=== PATIENT | male | born 1985 | race African-American/Black ===

== ENCOUNTER 2018-10-31 10:45 | Inpatient (IN) | payer OTHER ==
[2018-10-31 12:56] VITALS: BMI 22.9
--- NOTE | 2018-10-31 14:07 | HP ---
CIWA Score - Admission Criteria OASAS Guidelines: Admission for Medically Managed Detox: Requires at least one of the followin. CIWA greater than 12 2. Seizures within the past 24 hours 3. Delirium tremens within the past 24 hours 4. Hallucinations within the past 24 hours 5. Acute intervention needed for co occurring medical disorder 6. Acute intervention needed for co occurring psychiatric disorder 7. Severe withdrawal that cannot be handled at a lower level of care (continued vomiting, continued diarrhea, abnormal vital signs) requiring intravenous medication and/or fluids 8. Admission ROS [facility] - HPI Chief Complaint: i am here for rehab from alcohol,marijuana Allergies/Adverse Reactions: Allergies Allergy/AdvReac Type Severity Reaction Status Date / Time No Known Allergies Allergy Verified 10/31/18 12:43 History of Present Illness: this 33 years old male with alcohol and marijuana dependence,seeking rehab, attending out patient program, need help in rehab blindness of right eye since 2008 nicotine dependence 1 pack/day,did not want nicotine replacement bipolar disorder with mood disorder Exam Limitations: No Limitations - Ebola screening Have you traveled outside of the country in the last 21 days: No (N) Have you had contact with anyone from an Ebola affected area: No Do you have a fever: No - Review of Systems Constitutional: No Symptoms Reported EENT: reports: No Symptoms Reported, Other (blindness of right eye since 2008) Respiratory: reports: No Symptoms reported Cardiac: reports: No Symptoms Reported GI: reports: No Symptoms Reported : reports: No Symptoms Reported Integumentary: reports: No Symptoms Reported Neuro: reports: No Symptoms reported Endocrine: reports: No Symptoms Reported Hematology: reports: No Symptoms Reported Psychiatric: reports: No Sypmtoms Reported, Judgement Intact, Mood/Affect Appropiate, Orientated x3 (biplar disorder) Other Systems: Reviewed and Negative Patient History - Patient Medical History Hx Anemia: No Hx Asthma: No Hx Chronic Obstructive Pulmonary Disease (COPD): No Hx Cancer: No Hx Cardiac Disorders: No Hx Congestive Heart Failure: No Hx Hypertension: No Hx Hypercholesterolemia: No Hx Pacemaker: No HX Cerebrovascular Accident: No Hx Seizures: No Hx Dementia: No Hx Diabetes: No Hx Gastrointestinal Disorders: No Hx Liver Disease: No Hx Genitourinary Disorders: No Hx Sexually Transmitted Disorders: Yes (treated for syphilis) Hx Renal Disease (ESRD): No Hx Thyroid Disease: No Hx Human Immunodeficiency Virus (HIV): No (10/07 negative) Hx Hepatitis C: No Hx Depression: No Hx Suicide Attempt: No Hx Bipolar Disorder: Yes (no meds) Hx Schizophrenia: No Other Medical History: no suicidal,no homicidal - Patient Surgical History Past Surgical History: No - PPD History Previous Implant?: Yes Documented Results: Negative w/o proof Implanted On Prior [facility] Admission?: No PPD to be Administered?: Yes - Smoking Cessation Smoking history: Current every day smoker Have you smoked in the past 12 months: Yes Aproximately how many cigarettes per day: 20 Cigars Per Day: 0 Hx Chewing Tobacco Use: No Initiated information on smoking cessation: Yes 'Breaking Loose' booklet given: 10/31/18 - Substances abused Alcohol Substance route: Oral Frequency: 1-2 times per week Amount used: 1 bottle of champaign Age of first use: 14 Date of last use: 10/23/18 Marijuana/Hashish Substance route: Smoking Frequency: Daily Amount used: $ 2 blunts daily Age of first use: 14 Date of last use: 10/23/18 Family Disease History - Family Disease History Family History: Denies Admission Physical Exam [facility] - Vital Signs Vital Signs: Vital Signs - 24 hr 10/31/18 12:34 Temperature 97.1 F L Pulse Rate 66 Respiratory 16 Rate Blood Pressure 107/67 - Physical General Appearance: Yes: Within Normal Limits HEENTM: Yes: Within Normal Limits, Other (blindness of right eye since 2008) Respiratory: Yes: Lungs Clear, Normal Breath Sounds, No Respiratory Distress Neck: Yes: Within Normal Limits, Supple, Trachea in good position Breast: Yes: Within Normal Limits Cardiology: Yes: Within Normal Limits, Regular Rhythm, Regular Rate, S1, S2 Abdominal: Yes: Within Normal Limits, Normal Bowel Sounds, Non Tender, Flat Genitourinary: Yes: Within Normal Limits Back: Yes: Within Normal Limits Musculoskeletal: Yes: Within Normal Limits Extremities: Yes: Within Normal Limits (deformity left ring finger old injury), Normal Capillary Refill, Normal Range of Motion Neurological: Yes: film historian II-XII NML intact, Fully Oriented, Alert, Motor Strength 5/5 Integumentary: Yes: Within Normal Limits Lymphatic: Yes: Within Normal Limits - Diagnostic (1) Alcohol dependence Current Visit: Yes Status: Acute (2) Cannabis dependence Current Visit: Yes Status: Acute (3) Blindness of right eye Current Visit: Yes Status: Acute (4) Nicotine dependence Current Visit: Yes Status: Acute (5) Bipolar disorder Current Visit: Yes Status: Acute Cleared for Admission [facility] - Detox or Rehab Claeared for Rehab Admission: Yes Breathalyzer - Breathalyzer Breathalyzer: 0 Urine Drug Screen - Test Device Lot number: [id number] Expiration date: 07/19/20 - Control Is test valid?: Yes - Results Drug screen NEGATIVE: No Urine drug screen results: THC-Marijuana Inpatient Rehab Admission - Rehab Decision to Admit Inpatient rehab admission?: Yes - Initial Determination Are CD services needed?: Yes Free of communicable disease: Yes Not in need of hospitalization: Yes - Rehab Admission Criteria Previous failed treatment: Yes Poor recovery environment: Yes Comorbidities: Yes Lacks judgement: No Patient is meeting Inpatient Rehab admission criteria:: Yes
[2018-10-31] MEDS ORDERED: hydrOXYzine PAMOATE 50 MG CAPSULE (FP) PO PRN (14:19)
[2018-10-31] MEDS ORDERED: P-EPHED 60MG/TRIPROLIDI 2.5MG TABLET PO PRN (14:19)
[2018-10-31] MEDS ORDERED: MENTHOL/PHENOL 1 EACH UD MM PRN (14:19)
[2018-10-31] MEDS ORDERED: MAGNESIUM CITRATE 300 ML BOTTLE PO PRN (14:19)
[2018-10-31] MEDS ORDERED: ACETAMINOPHEN 325 MG TABLET (FP) PO PRN (14:19)
[2018-10-31] MEDS ORDERED: IBUPROFEN 400 MG TABLET (FP) PO PRN (14:19)
[2018-10-31] MEDS ORDERED: MAGNESIUM HYDROX 2400MG/30ML ORAL SUSPENSION 30 ML CUP PO PRN (14:19)
[2018-10-31] MEDS ORDERED: LOPERAMIDE HCL 2 MG CAPSULE PO PRN (14:19)
[2018-10-31] MEDS ORDERED: MAG HYDROX/AL HYDROX/SIMETH 30 ML UNIT-DOSE CUP PO PRN (14:19)
[2018-10-31] MEDS ORDERED: guaiFENesin 200 MG/10 ML 10 ML UNIT-DOSE CUPS PO PRN (14:19)
[2018-10-31 16:40] LABS: HEMOGLOBIN 14.3 GM/dL (11.7-16.9); MEAN PLT VOLUME 8.6 fl (7.5-11.1)
[2018-10-31 16:42] LABS: HEMATOCRIT 41.6 % (35.4-49); MCHC 34.3 g/dl (32.0-35.9); MEAN CELL VOLUME 96.2 fl (80-96); PLATELET COUNT 177 K/MM3 (134-434); RBC 4.33 M/mm3 (4.00-5.60); RDW 13.4 % (11.9-15.9); WHITE BLOOD COUNT 4.6 K/mm3 (4.0-10.0)
[2018-10-31 17:02] LABS: BILIRUBIN,TOTAL 0.3 mg/dL (0.2-1); BLOOD UREA NITROGEN 16.2 mg/dL (7-18); CALCIUM 8.9 mg/dL (8.5-10.1); CREATININE 1.1 mg/dL (0.55-1.3); POTASSIUM 3.8 mmol/L (3.5-5.1); TOT PROT 7.4 g/dl (6.4-8.2)
[2018-10-31 18:04] LABS: EPI CELLS 2.8 /HPF (0-5/HPF); HYALINE CASTS 17 /lpf (0-8); URINE APPEARANCE CLEAR; URINE BACTERIA 2.4 /hpf (NEGATIVE); URINE BILIRUBIN NEGATIVE (NEGATIVE); URINE COLOR YELLOW; URINE GLUCOSE (UA) NEGATIVE (NEGATIVE); URINE KETONE TRACE (NEGATIVE); URINE LEUK ESTERASE TRACE (NEGATIVE); URINE NITRITE NEGATIVE (NEGATIVE); URINE PROTEIN NEGATIVE (NEGATIVE); URINE RBC 1 /hpf (0-4); URINE WBC 25 /hpf (0-5)
[2018-10-31 18:55] LABS: URINE CRYSTALS FEW CALCIUM OXALATE /hpf
[2018-10-31] MEDS ORDERED: MELATONIN 5 MG TABLETS PO PRN (22:00)
[2018-10-31] MEDS: THIAMINE HCL 100 MG TABLET (FP) PO SCH (22:24)
[2018-11-01] MEDS: PRENATAL VITAMINS W/ FOLIC ACID TABLET (FP) PO SCH (10:33)
--- NOTE | 2018-11-01 11:49 | EKG ---
Test Reason : Blood Pressure : / mmHG Vent. Rate : 052 BPM Atrial Rate : 052 BPM P-R Int : 154 ms QRS Dur : 096 ms QT Int : 420 ms P-R-T Axes : 069 071 054 degrees QTc Int : 390 ms SINUS BRADYCARDIA MINIMAL VOLTAGE CRITERIA FOR LVH, MAY BE NORMAL VARIANT ST ELEVATION, CONSIDER EARLY REPOLARIZATION BORDERLINE ECG NO PREVIOUS ECGS AVAILABLE Confirmed by ROSETTE HENDERSON MD ([id number]) on 11/01/2018 11:49:06 AM Referred By: Confirmed By:ROSETTE HENDERSON MD
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
[2018-11-01] MEDS: THIAMINE HCL 100 MG TABLET (FP) PO SCH (21:57)
[2018-11-02] MEDS: PRENATAL VITAMINS W/ FOLIC ACID TABLET (FP) PO SCH (10:39)
[2018-11-02] MEDS: THIAMINE HCL 100 MG TABLET (FP) PO SCH (21:56)
[2018-11-03] MEDS: PRENATAL VITAMINS W/ FOLIC ACID TABLET (FP) PO SCH (10:50)
[2018-11-03] MEDS: THIAMINE HCL 100 MG TABLET (FP) PO SCH (21:38)
[2018-11-04] MEDS: PRENATAL VITAMINS W/ FOLIC ACID TABLET (FP) PO SCH (09:43)
[2018-11-04] MEDS: THIAMINE HCL 100 MG TABLET (FP) PO SCH (21:19)
[2018-11-05 06:44] VITALS: BP 134/71; PULSE 52; TEMP 98.2
--- NOTE | 2018-11-05 12:00 | PN ---
S Progress Note Note: Notified by nursing staff Patient requested to sign out AMA. Patient refused to speak to provider and noted standing at nurses station, agitated. Patient requested to leave immediately and was in no acute distress. Patient left unit with nursing staff development coordinator in stable condition, alert and oriented x 3, amb ad lucia. Vital Signs Temperature 98.2 F 11/05/18 06:43 Pulse Rate 52 L 11/05/18 06:43 Respiratory Rate 16 11/05/18 06:43 Blood Pressure 134/71 11/05/18 06:43 O2 Sat by Pulse Oximetry (%)
== END 2018-11-05 08:40 | disposition left against medical advice (07) | DRG 770 ==
LOC: YASAS 10:45 → Y3W 14:16
PROVIDERS: ADMIT Neuromusculoskeletal Medicine & OMM; ATTEND Neuromusculoskeletal Medicine & OMM
PROC: HZ42ZZZ Group Counseling for Substance Abuse Treatment, Cognitive-Behavioral (ICD-10-PCS; principal; 2018-10-31)
DX: F10.20 Alcohol dependence, uncomplicated (principal); F12.20 Cannabis dependence, uncomplicated; F17.210 Nicotine dependence, cigarettes, uncomplicated; F25.9 Schizoaffective disorder, unspecified; F19.24 Other psychoactive substance dependence with psychoactive substance-induced mood disorder; F31.9 Bipolar disorder, unspecified; H54.61 Unqualified visual loss, right eye, normal vision left eye; Z86.19 Personal history of other infectious and parasitic diseases
CPT/HCPCS: 36415; 80053; 81003; 85027; 86593; 87389; 93005; 93010

== ENCOUNTER 2018-12-10 13:05 | Inpatient (IN) | payer OTHER ==
[2018-12-10 17:32] VITALS: BMI 22.1
--- NOTE | 2018-12-10 17:58 | HP ---
CIWA Score - Admission Criteria OASAS Guidelines: Admission for Medically Managed Detox: Requires at least one of the followin. CIWA greater than 12 2. Seizures within the past 24 hours 3. Delirium tremens within the past 24 hours 4. Hallucinations within the past 24 hours 5. Acute intervention needed for co occurring medical disorder 6. Acute intervention needed for co occurring psychiatric disorder 7. Severe withdrawal that cannot be handled at a lower level of care (continued vomiting, continued diarrhea, abnormal vital signs) requiring intravenous medication and/or fluids 8. Admission ROS [facility] Chief Complaint: seeking rehab for THC use Allergies/Adverse Reactions: Allergies Allergy/AdvReac Type Severity Reaction Status Date / Time No Known Allergies Allergy Verified 10/31/18 12:43 History of Present Illness: 33 y/o/m here seeking rehab for marijuana use. He is part of an outpatient program, [facility]. He is seeking help with his THC use and his counselor suggested going into a rehab program. He uses 7 grams of marijuana everyday, last use was 2 days ago. He drinks alcohol socially. PMHx of PTSD and bipolar disorder. He has taken Prozac and Zyprexa but has not taken them in months. Denies SHx. He is currently homeless. He smokes a pack a cigarettes a day. He has loss of vision in his right eye since 2008 due to an accident. - Ebola screening Have you traveled outside of the country in the last 21 days: No Have you had contact with anyone from an Ebola affected area: No - Review of Systems Constitutional: Loss of Appetite EENT: reports: No Symptoms Reported Respiratory: reports: No Symptoms reported Cardiac: reports: No Symptoms Reported GI: reports: No Symptoms Reported : reports: No Symptoms Reported Musculoskeletal: reports: No Symptoms Reported Integumentary: reports: No Symptoms Reported Neuro: reports: No Symptoms reported Endocrine: reports: No Symptoms Reported Hematology: reports: No Symptoms Reported Psychiatric: reports: No Sypmtoms Reported Other Systems: Reviewed and Negative Patient History - Patient Medical History Hx Anemia: No Hx Asthma: No Hx Chronic Obstructive Pulmonary Disease (COPD): No Hx Cancer: No Hx Cardiac Disorders: No Hx Congestive Heart Failure: No Hx Hypertension: No Hx Hypercholesterolemia: No Hx Pacemaker: No HX Cerebrovascular Accident: No Hx Seizures: No Hx Dementia: No Hx Diabetes: No Hx Gastrointestinal Disorders: No Hx Liver Disease: No Hx Genitourinary Disorders: No Hx Sexually Transmitted Disorders: No Hx Renal Disease (ESRD): No Hx Thyroid Disease: No Hx Human Immunodeficiency Virus (HIV): No (10/07 negative) Hx Hepatitis C: No Hx Depression: No Hx Suicide Attempt: No Hx Bipolar Disorder: Yes (no meds) Hx Schizophrenia: No - Patient Surgical History Past Surgical History: No - PPD History Documented Results: Negative w/o proof Implanted On Prior [facility] Admission?: Yes Date: 11/02/18 PPD to be Administered?: Yes - Smoking Cessation Smoking history: Current every day smoker Have you smoked in the past 12 months: Yes Aproximately how many cigarettes per day: 20 Cigars Per Day: 0 Hx Chewing Tobacco Use: No Initiated information on smoking cessation: Yes 'Breaking Loose' booklet given: 12/10/18 - Substances abused Alcohol Substance route: Oral Frequency: No use in 30 days Amount used: 1 bottle of champaign Age of first use: 14 Date of last use: 11/17/18 Marijuana/Hashish Substance route: Smoking Frequency: Daily Amount used: 7 grams Age of first use: 14 Date of last use: 12/08/18 Family Disease History - Family Disease History Family Disease History: Diabetes: Father Admission Physical Exam S - Vital Signs Vital Signs: Vital Signs - 24 hr 12/10/18 12/10/18 17:26 17:33 Temperature 97.9 F 97.9 F Pulse Rate 55 L 55 L Respiratory 18 18 Rate Blood Pressure 119/55 L 119/55 L - Physical General Appearance: Yes: No Apparent Distress HEENTM: Yes: EOMI, Normocephalic Respiratory: Yes: Lungs Clear, Normal Breath Sounds, No Accessory Muscle Use Neck: Yes: Supple Cardiology: Yes: Regular Rhythm, Regular Rate, S1, S2 Abdominal: Yes: Normal Bowel Sounds, Soft. No: Guarding, Rebound Musculoskeletal: Yes: Gait Steady Extremities: Yes: Normal Capillary Refill. No: Tremors, Swelling Neurological: Yes: conflicts analyst II-XII NML intact, Fully Oriented, Alert, Motor Strength 5/5 Integumentary: Yes: Normal Color - Diagnostic (1) Cannabis abuse Current Visit: Yes Status: Acute Breathalyzer - Breathalyzer Breathalyzer: 0 Urine Drug Screen - Test Device Lot number: [id number] Expiration date: 09/18/20 - Control Is test valid?: Yes - Results Drug screen NEGATIVE: No Urine drug screen results: THC-Marijuana Inpatient Rehab Admission - Rehab Decision to Admit Inpatient rehab admission?: Yes - Initial Determination Are CD services needed?: Yes Free of communicable disease: Yes Not in need of hospitalization: Yes - Rehab Admission Criteria Previous failed treatment: No Poor recovery environment: No Comorbidities: No Lacks judgement: Yes Patient is meeting Inpatient Rehab admission criteria:: Yes
[2018-12-10] MEDS ORDERED: guaiFENesin 200 MG/10 ML 10 ML UNIT-DOSE CUPS PO PRN (18:26)
[2018-12-10] MEDS ORDERED: MAG HYDROX/AL HYDROX/SIMETH 30 ML UNIT-DOSE CUP PO PRN (18:26)
[2018-12-10] MEDS ORDERED: MENTHOL/PHENOL 1 EACH UD MM PRN (18:26)
[2018-12-10] MEDS ORDERED: P-EPHED 60MG/TRIPROLIDI 2.5MG TABLET PO PRN (18:26)
[2018-12-10] MEDS ORDERED: MAGNESIUM CITRATE 300 ML BOTTLE PO PRN (18:26)
[2018-12-10] MEDS ORDERED: LOPERAMIDE HCL 2 MG CAPSULE PO PRN (18:26)
[2018-12-10] MEDS ORDERED: MAGNESIUM HYDROX 2400MG/30ML ORAL SUSPENSION 30 ML CUP PO PRN (18:26)
[2018-12-10] MEDS ORDERED: IBUPROFEN 400 MG TABLET (FP) PO PRN (18:26)
[2018-12-10] MEDS ORDERED: ACETAMINOPHEN 325 MG TABLET (FP) PO PRN (18:26)
--- NOTE | 2018-12-10 19:11 | PN ---
Teaching Attending Note Name of Resident: Love Watkins ATTENDING PHYSICIAN STATEMENT I saw and evaluated the patient. I reviewed the resident's note and discussed the case with the resident. I agree with the resident's findings and plan as documented. SUBJECTIVE: Pt here for rehab- for management of marijuana use. Pt states was asked to come here by counselor- says he needs to stop to be able to continue with treatment programs as an outpatient OBJECTIVE: Vital Signs - 24 hr 12/10/18 12/10/18 17:26 17:33 Temperature 97.9 F 97.9 F Pulse Rate 55 L 55 L Respiratory 18 18 Rate Blood Pressure 119/55 L 119/55 L alert and orinted no tremors ASSESSMENT AND PLAN: pt to be admitted for rehab services for help with cannabis use disorder
[2018-12-10] MEDS: THIAMINE HCL 100 MG TABLET (FP) PO SCH (21:29)
[2018-12-10] MEDS: NICOTINE 7 MG/24 HOURS TOPICAL PATCH TD SCH (21:29)
[2018-12-11] MEDS: NICOTINE 7 MG/24 HOURS TOPICAL PATCH TD SCH (10:39)
[2018-12-11] MEDS: PRENATAL VITAMINS W/ FOLIC ACID TABLET (FP) PO SCH (10:39)
[2018-12-11 12:27] LABS: ALBUMIN 3.6 g/dl (3.4-5.0); BILIRUBIN,TOTAL 0.2 mg/dL (0.2-1); BLOOD UREA NITROGEN 12.9 mg/dL (7-18); CALCIUM 9.3 mg/dL (8.5-10.1); CREATININE 1.2 mg/dL (0.55-1.3); HEMATOCRIT 42.2 % (35.4-49); HEMOGLOBIN 14.4 GM/dL (11.7-16.9); MCH 32.9 pg (25.7-33.7); MCHC 34.2 g/dl (32.0-35.9); MEAN CELL VOLUME 96.3 fl (80-96); MEAN PLT VOLUME 8.3 fl (7.5-11.1); PLATELET COUNT 190 K/MM3 (134-434); RBC 4.38 M/mm3 (4.00-5.60); RDW 12.7 % (11.9-15.9); WHITE BLOOD COUNT 4.2 K/mm3 (4.0-10.0)
[2018-12-11 17:32] LABS: URINE APPEARANCE CLEAR; URINE BILIRUBIN NEGATIVE (NEGATIVE); URINE COLOR YELLOW; URINE GLUCOSE (UA) NEGATIVE (NEGATIVE); URINE KETONE NEGATIVE (NEGATIVE); URINE LEUK ESTERASE NEGATIVE (NEGATIVE); URINE NITRITE NEGATIVE (NEGATIVE); URINE PROTEIN NEGATIVE (NEGATIVE); URINE UROBILINOGEN 0.2 mg/dL (0.2-1.0)
[2018-12-11] MEDS: THIAMINE HCL 100 MG TABLET (FP) PO SCH (21:40)
[2018-12-11] MEDS: MELATONIN 5 MG TABLETS PO PRN (21:40)
[2018-12-12] MEDS: PRENATAL VITAMINS W/ FOLIC ACID TABLET (FP) PO SCH (10:21)
[2018-12-12] MEDS: NICOTINE 7 MG/24 HOURS TOPICAL PATCH TD SCH (10:21)
[2018-12-12] MEDS: MELATONIN 5 MG TABLETS PO PRN (21:29)
[2018-12-12] MEDS: THIAMINE HCL 100 MG TABLET (FP) PO SCH (21:29)
[2018-12-13 07:02] VITALS: BP 116/62; PULSE 63; TEMP 97.8
[2018-12-13] MEDS: PRENATAL VITAMINS W/ FOLIC ACID TABLET (FP) PO SCH (11:07)
[2018-12-13] MEDS: NICOTINE 7 MG/24 HOURS TOPICAL PATCH TD SCH (11:07)
--- NOTE | 2018-12-13 16:09 | PN ---
[facility] Progress Note (SOAP) Subjective: PT ADMITTED ON 12/10/18 REQUESTING TO SIGN OUT AMA STATING "I DONT WANNA BE HERE.. REFERRED TO [facility]. REPORTS PRIMARY CARE WITH ELLIS HOLLIE RUSSELLKELVIN( PT VERY ANXIOUS TO LEAVE AND UNABLE TO GIVE DETAILED INFORMATION DECLINING TO DO SO). DENIES S/H/I Objective: 12/13/18 16:05 ALERT O X3 AMBULATES WITH STEADY GAIT. Vital Signs - 24 hr 12/13/18 12/13/18 12/13/18 00:30 03:30 07:00 Temperature 97.8 F Pulse Rate 63 Respiratory 18 18 18 Rate Blood Pressure 116/62 Laboratory Tests 12/11/18 12/11/18 12/11/18 07:00 07:00 07:00 WBC 4.2 RBC 4.38 Hgb 14.4 Hct 42.2 MCV 96.3 H MCH 32.9 MCHC 34.2 RDW 12.7 Plt Count 190 MPV 8.3 Sodium 141 Potassium 4.0 Chloride 104 Carbon Dioxide 33 H Anion Gap 4 L BUN 12.9 Creatinine 1.2 Est GFR (CKD-EPI)AfAm 91.53 Est GFR (CKD-EPI)NonAf 78.97 Random Glucose 62 L Calcium 9.3 Total Bilirubin 0.2 AST 9 L ALT 17 Alkaline Phosphatase 63 Total Protein 7.0 Albumin 3.6 Urine Color Urine Appearance Urine pH Ur Specific [place] Urine Protein Urine Glucose (UA) Urine Ketones Urine Blood Urine Nitrite Urine Bilirubin Urine Urobilinogen Ur Leukocyte Esterase RPR Titer Nonreactive 12/11/18 13:25 WBC RBC Hgb Hct MCV MCH MCHC RDW Plt Count MPV Sodium Potassium Chloride Carbon Dioxide Anion Gap BUN Creatinine Est GFR (CKD-EPI)AfAm Est GFR (CKD-EPI)NonAf Random Glucose Calcium Total Bilirubin AST ALT Alkaline Phosphatase Total Protein Albumin Urine Color Yellow Urine Appearance Clear Urine pH 7.0 Ur Specific [place] 1.022 Urine Protein Negative Urine Glucose (UA) Negative Urine Ketones Negative Urine Blood Negative Urine Nitrite Negative Urine Bilirubin Negative Urine Urobilinogen 0.2 Ur Leukocyte Esterase Negative RPR Titer Home Medications Medication Instructions Recorded Fluoxetine HCl [Prozac -] 10 mg PO HS 12/13/18 Olanzapine [Zyprexa] 10 mg PO HS 12/13/18 Assessment: 12/13/18 16:06 NAD [facility] Inpatient Services Medical - Diagnosis (1) Alcohol dependence Qualifiers: Substance use status: uncomplicated Qualified Code(s): F10.20 - Alcohol dependence, uncomplicated Status: Chronic (2) Cannabis dependence Status: Chronic (3) Nicotine dependence Qualifiers: Nicotine product type: cigarettes Substance use status: uncomplicated Qualified Code(s): F17.210 - Nicotine dependence, cigarettes, uncomplicated Status: Chronic Initialized on 12/13/18 16:09 - END OF NOTE Plan: PT SIGNED OUT AMA FOLLOW UP WITH CD AFTERCARE RECOMMENDED. REMINDED PT TO FOLLOW UP WITH HIS PRIMARY CARE PROVIDER NEEDED INDICATED ABOVE.
== END 2018-12-13 13:45 | disposition left against medical advice (07) | DRG 770 ==
LOC: YASAS 13:05 → Y5N 18:41
PROVIDERS: ADMIT Neuromusculoskeletal Medicine & OMM; ATTEND Neuromusculoskeletal Medicine & OMM
PROC: HZ42ZZZ Group Counseling for Substance Abuse Treatment, Cognitive-Behavioral (ICD-10-PCS; principal; 2018-12-10)
DX: F12.10 Cannabis abuse, uncomplicated (principal); F17.210 Nicotine dependence, cigarettes, uncomplicated
CPT/HCPCS: 36415; 80053; 81003; 85027; 86593

== ENCOUNTER 2019-04-06 12:03 | Inpatient (IN) | payer OTHER ==
[2019-04-06 12:55] VITALS: BMI 20.7
--- NOTE | 2019-04-06 14:28 | HP ---
CIWA Score Nausea/Vomitin-Mild Nausea/No Vomiting Muscle Tremors: 2 Anxiety: 2 Agitation: 2 Paroxysmal Sweats: 3 Orientation: 0-Oriented Tacttile Disturbances: 0-None Auditory Disturbances: 0-None Visual Disturbances: 1-Very Mild Sensitivity Headache: 2-Mild CIWA-Ar Total Score: 13 - Admission Criteria OASAS Guidelines: Admission for Medically Managed Detox: Requires at least one of the followin. CIWA greater than 12 2. Seizures within the past 24 hours 3. Delirium tremens within the past 24 hours 4. Hallucinations within the past 24 hours 5. Acute intervention needed for co occurring medical disorder 6. Acute intervention needed for co occurring psychiatric disorder 7. Severe withdrawal that cannot be handled at a lower level of care (continued vomiting, continued diarrhea, abnormal vital signs) requiring intravenous medication and/or fluids 8. Patient presents the following: CIWA greater than 12 Admission Criteria Met: Admission criteria met Admitting History and Physical - Smoking History Smoking history: Current every day smoker Have you smoked in the past 12 months: Yes Aproximately how many cigarettes per day: [address] [facility] Chief Complaint: I am here for detox from alcohol and then rehab Allergies/Adverse Reactions: Allergies Allergy/AdvReac Type Severity Reaction Status Date / Time No Known Allergies Allergy Verified 04/06/19 12:42 History of Present Illness: 33 year old male with alcohol dependence presents for detox with intention of going into rehab. He has been here a few times for rehab, last treatment was in November of this year. Exam Limitations: No Limitations - Ebola screening Have you traveled outside of the country in the last 21 days: No (N) Have you had contact with anyone from an Ebola affected area: No Have you been sick,other than usual withdrawal symptoms: No Do you have a fever: No - Review of Systems Constitutional: Weight Stable EENT: reports: No Symptoms Reported Respiratory: reports: Cough Cardiac: reports: No Symptoms Reported GI: reports: Abdominal cramping : reports: No Symptoms Reported Musculoskeletal: reports: Back Pain, Muscle Pain Integumentary: reports: No Symptoms Reported Neuro: reports: Headache Endocrine: reports: No Symptoms Reported Hematology: reports: No Symptoms Reported Psychiatric: reports: Anxious, Depressed Other Systems: Reviewed and Negative Patient History - Patient Medical History Hx Anemia: No Hx Asthma: No Hx Chronic Obstructive Pulmonary Disease (COPD): No Hx Cancer: No Hx Cardiac Disorders: No Hx Congestive Heart Failure: No Hx Hypertension: No Hx Hypercholesterolemia: No Hx Pacemaker: No HX Cerebrovascular Accident: No Hx Seizures: No Hx Dementia: No Hx Diabetes: No Hx Gastrointestinal Disorders: No Hx Liver Disease: No Hx Genitourinary Disorders: No Hx Sexually Transmitted Disorders: No Hx Renal Disease (ESRD): No Hx Thyroid Disease: No Hx Human Immunodeficiency Virus (HIV): No Hx Hepatitis C: No Hx Depression: Yes Hx Suicide Attempt: No Hx Bipolar Disorder: Yes (no meds) Hx Schizophrenia: No - Patient Surgical History Past Surgical History: No - PPD History Previous Implant?: Yes Documented Results: Negative w/proof Implanted On Prior [facility] Admission?: Yes Date: 11/02/18 PPD to be Administered?: No - Smoking Cessation Smoking history: Current every day smoker Have you smoked in the past 12 months: Yes Aproximately how many cigarettes per day: 20 Cigars Per Day: 0 Hx Chewing Tobacco Use: No Initiated information on smoking cessation: Yes 'Breaking Loose' booklet given: 04/06/19 - Substances abused Alcohol Substance route: Oral Frequency: 3-6 times per week Amount used: a fifth Age of first use: 14 Date of last use: 04/05/19 Marijuana/Hashish Substance route: Smoking Frequency: Daily Amount used: 3+ bags Age of first use: 14 Date of last use: 04/06/19 Admission Physical Exam [facility] - Vital Signs Vital Signs: Vital Signs - 24 hr 04/06/19 12:48 Temperature 97 F L Pulse Rate 56 L Respiratory 14 Rate Blood Pressure 100/65 - Physical General Appearance: Yes: No Apparent Distress HEENTM: Yes: Hearing grossly Normal, Normocephalic, Normal Voice Respiratory: Yes: Chest Non-Tender, Lungs Clear, Normal Breath Sounds, No Accessory Muscle Use Neck: Yes: No masses,lesions,Nodules, Supple Breast: Yes: Breast Exam Deferred Cardiology: Yes: Regular Rhythm, Regular Rate, S1, S2 Abdominal: Yes: Normal Bowel Sounds, Soft Genitourinary: Yes: Within Normal Limits Back: Yes: Normal Inspection Musculoskeletal: Yes: full range of Motion, Gait Steady, Pelvis Stable Extremities: Yes: Tremors Neurological: Yes: quality assurance coach II-XII NML intact, Fully Oriented, Alert, Normal Mood/ Affect, Normal Response Integumentary: Yes: Normal Color, Clammy Lymphatic: Yes: Within Normal Limits - Diagnostic (1) Cannabis abuse Current Visit: Yes Status: Acute (2) Alcohol dependence Current Visit: No Status: Chronic Qualifiers: Substance use status: uncomplicated Qualified Code(s): F10.20 - Alcohol dependence, uncomplicated (3) Nicotine dependence Current Visit: Yes Status: Acute Qualifiers: Nicotine product type: cigarettes Substance use status: uncomplicated Qualified Code(s): F17.210 - Nicotine dependence, cigarettes, uncomplicated Cleared for Admission [facility] - Detox or Rehab [facility] Level of Care: Medically Managed Detox Regimen/Protocol: Librium Claeared for Rehab Admission: No Breathalyzer - Breathalyzer Breathalyzer: 0 Urine Drug Screen - Test Device Lot number: [id number] Expiration date: 12/19/20 - Control Is test valid?: Yes - Results Drug screen NEGATIVE: No Urine drug screen results: THC-Marijuana Inpatient Rehab Admission - Rehab Decision to Admit Inpatient rehab admission?: No
[2019-04-06] MEDS ORDERED: chlordiazePOXIDE HCL 25 MG CAPSULE PO ONE (14:33)
[2019-04-06] MEDS ORDERED: BISMUTH SUBSALICYLATE 524 MG/30 ML UD PO PRN (14:33)
[2019-04-06] MEDS ORDERED: MAG HYDROX/AL HYDROX/SIMETH 30 ML UNIT-DOSE CUP PO PRN (14:33)
[2019-04-06] MEDS ORDERED: IBUPROFEN 400 MG TABLET (FP) PO PRN (14:33)
[2019-04-06] MEDS ORDERED: NICOTINE POLACRILEX 2 MG GUM BUC PRN (14:33)
[2019-04-06] MEDS ORDERED: ONDANSETRON *ODT* 4 MG TABLET SL PRN (14:33)
[2019-04-06] MEDS ORDERED: chlordiazePOXIDE HCL 10 MG CAPSULE PO PRN (14:33)
[2019-04-06] MEDS ORDERED: MAGNESIUM HYDROX 2400MG/30ML ORAL SUSPENSION 30 ML CUP PO PRN (14:33)
[2019-04-06] MEDS ORDERED: ACETAMINOPHEN 325 MG TABLET (FP) PO PRN ×2 (14:33)
[2019-04-06] MEDS ORDERED: hydrOXYzine PAMOATE 25 MG CAPSULE (FP) PO PRN (14:33)
[2019-04-06] MEDS ORDERED: MAGNESIUM CITRATE 300 ML BOTTLE PO PRN (14:33)
[2019-04-06] MEDS ORDERED: METHOCARBAMOL 500 MG TABLET PO PRN (14:33)
[2019-04-06] MEDS ORDERED: MENTHOL/PHENOL 1 EACH UD MM PRN (14:33)
[2019-04-06] MEDS: THIAMINE HCL 100 MG TABLET (FP) PO SCH (22:20)
[2019-04-06] MEDS: chlordiazePOXIDE HCL 25 MG CAPSULE PO SCH (22:20)
[2019-04-07] MEDS: chlordiazePOXIDE HCL 25 MG CAPSULE PO SCH ×3 (06:12→22:32)
[2019-04-07 11:02] LABS: HEMATOCRIT 41.4 % (35.4-49); MCH 32.2 pg (25.7-33.7); MCHC 33.8 g/dl (32.0-35.9); MEAN CELL VOLUME 95.3 fl (80-96); MEAN PLT VOLUME 8.6 fl (7.5-11.1); PLATELET COUNT 174 K/MM3 (134-434); RBC 4.35 M/mm3 (4.00-5.60); RDW 13.3 % (11.9-15.9); WHITE BLOOD COUNT 4.4 K/mm3 (4.0-10.0)
[2019-04-07 11:09] LABS: ALBUMIN 3.5 g/dl (3.4-5.0); BILIRUBIN,TOTAL 0.5 mg/dL (0.2-1); BLOOD UREA NITROGEN 13.5 mg/dL (7-18); CALCIUM 8.4 mg/dL (8.5-10.1); CREATININE 1.1 mg/dL (0.55-1.3); POTASSIUM 3.9 mmol/L (3.5-5.1); TOT PROT 6.4 g/dl (6.4-8.2)
[2019-04-07] MEDS: PRENATAL VITAMINS W/ FOLIC ACID TABLET (FP) PO SCH (11:13)
[2019-04-07 12:12] LABS: RPR REACTIVE 1:2 (NONREACTIVE)
--- NOTE | 2019-04-07 13:12 | PN ---
S CIWA - CIWA Score Nausea/Vomitin-Mild Nausea/No Vomiting Muscle Tremors: 3 Anxiety: 4-Mod. Anxious/Guarded Agitation: 1-Slight > Activity Paroxysmal Sweats: 3 Orientation: 0-Oriented Tacttile Disturbances: 0-None Auditory Disturbances: 0-None Visual Disturbances: 0-None Headache: 0-None Present CIWA-Ar Total Score: 12 BHS Progress Note (SOAP) Subjective: Sweating Objective: 04/07/19 13:04 Last Vital Signs Temp Pulse Resp BP Pulse Ox 97 F L 56 L 18 122/67 04/07/19 10:52 04/07/19 10:52 04/07/19 10:52 04/07/19 10:52 Laboratory Tests 04/07/19 04/07/19 04/07/19 07:40 07:40 07:40 WBC 4.4 RBC 4.35 Hgb 14.0 Hct 41.4 MCV 95.3 MCH 32.2 MCHC 33.8 RDW 13.3 Plt Count 174 MPV 8.6 Sodium 140 Potassium 3.9 Chloride 107 Carbon Dioxide 31 Anion Gap 3 L BUN 13.5 Creatinine 1.1 Est GFR (CKD-EPI)AfAm 101.69 Est GFR (CKD-EPI)NonAf 87.74 Random Glucose 77 Calcium 8.4 L Total Bilirubin 0.5 AST 11 L ALT 15 Alkaline Phosphatase 51 Total Protein 6.4 Albumin 3.5 RPR Titer Reactive 1:2 H D HIV 1&2 Antibody Screen HIV P24 Antigen 04/07/19 07:40 WBC RBC Hgb Hct MCV MCH MCHC RDW Plt Count MPV Sodium Potassium Chloride Carbon Dioxide Anion Gap BUN Creatinine Est GFR (CKD-EPI)AfAm Est GFR (CKD-EPI)NonAf Random Glucose Calcium Total Bilirubin AST ALT Alkaline Phosphatase Total Protein Albumin RPR Titer HIV 1&2 Antibody Screen Negative HIV P24 Antigen Negative Labs reviewed Assessment: 04/07/19 13:12 Withdrawal sxs Plan: Continue detox Encouraged PO water intake
[2019-04-07 15:05] LABS: TREPONEMA ANTIBODY REACTIVE (NONREACTIVE)
[2019-04-07] MEDS: THIAMINE HCL 100 MG TABLET (FP) PO SCH (22:32)
[2019-04-08] MEDS: chlordiazePOXIDE 5 MG CAPSULE PO SCH ×3 (06:03→21:53)
[2019-04-08] MEDS: PRENATAL VITAMINS W/ FOLIC ACID TABLET (FP) PO SCH (10:57)
--- NOTE | 2019-04-08 12:19 | PN ---
S CIWA - CIWA Score Nausea/Vomitin-Mild Nausea/No Vomiting Muscle Tremors: 2 Anxiety: 3 Agitation: 2 Paroxysmal Sweats: 1-Minimal Palms Moist Orientation: 0-Oriented Tacttile Disturbances: 1-Very Mild Itch/Numbness Auditory Disturbances: 0-None Visual Disturbances: 0-None Headache: 2-Mild CIWA-Ar Total Score: 12 S Progress Note (SOAP) Subjective: alert,irritable,anxious,interrupted sleep,tremor Objective: 04/08/19 12:32 Vital Signs Temperature 97.9 F 04/08/19 09:18 Pulse Rate 50 L 04/08/19 09:18 Respiratory Rate 16 04/08/19 09:18 Blood Pressure 96/50 L 04/08/19 09:18 O2 Sat by Pulse Oximetry (%) 04/08/19 12:32 Laboratory Last Values WBC 4.4 K/mm3 (4.0-10.0) 04/07/19 07:40 RBC 4.35 M/mm3 (4.00-5.60) 04/07/19 07:40 Hgb 14.0 GM/dL (11.7-16.9) 04/07/19 07:40 Hct 41.4 % (35.4-49) 04/07/19 07:40 MCV 95.3 fl (80-96) 04/07/19 07:40 MCH 32.2 pg (25.7-33.7) 04/07/19 07:40 MCHC 33.8 g/dl (32.0-35.9) 04/07/19 07:40 RDW 13.3 % (11.9-15.9) 04/07/19 07:40 Plt Count 174 K/MM3 (134-434) 04/07/19 07:40 MPV 8.6 fl (7.5-11.1) 04/07/19 07:40 Sodium 140 mmol/L (136-145) 04/07/19 07:40 Potassium 3.9 mmol/L (3.5-5.1) 04/07/19 07:40 Chloride 107 mmol/L (98-107) 04/07/19 07:40 Carbon Dioxide 31 mmol/L (21-32) 04/07/19 07:40 Anion Gap 3 MMOL/L (8-16) L 04/07/19 07:40 BUN 13.5 mg/dL (7-18) 04/07/19 07:40 Creatinine 1.1 mg/dL (0.55-1.3) 04/07/19 07:40 Est GFR (CKD-EPI)AfAm 101.69 04/07/19 07:40 Est GFR (CKD-EPI)NonAf 87.74 04/07/19 07:40 Random Glucose 77 mg/dL (74-106) 04/07/19 07:40 Calcium 8.4 mg/dL (8.5-10.1) L 04/07/19 07:40 Total Bilirubin 0.5 mg/dL (0.2-1) 04/07/19 07:40 AST 11 U/L (15-37) L 04/07/19 07:40 ALT 15 U/L (13-61) 04/07/19 07:40 Alkaline Phosphatase 51 U/L (45-117) 04/07/19 07:40 Total Protein 6.4 g/dl (6.4-8.2) 04/07/19 07:40 Albumin 3.5 g/dl (3.4-5.0) 04/07/19 07:40 RPR Titer Reactive 1:2 (NONREACTIVE) H D 04/07/19 07:40 T.pallidum Ab (MHA) Reactive (NONREACTIVE) 04/07/19 07:40 HIV 1&2 Antibody Screen Negative 04/07/19 07:40 HIV P24 Antigen Negative 04/07/19 07:40 patient stated he was treated with syphilis in [facility] with 3 injections and was cured the rpr on this patient in this facility is negative on 12/07/18 04/08/19 12:34 rpr reactive 1:2 ,mha reactive will give bicillin 2.4 million unit im now,will give weekly for 2 more injection on 04/15/19 and 04/22/19 when patient going to rehab Assessment: 04/08/19 12:37 withdrawal symptom Plan: continue detox librium regimen,bicillin treatment as mentioned,discussed with patient agreed, patient has behavior problem before but agreed to comply with unit rule and agree to behave,
[2019-04-08] MEDS ORDERED: PENICILLIN G BENZATHINE 2,400,000 UNIT/4 ML PFS IM ONE (12:40)
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
[2019-04-08] MEDS: THIAMINE HCL 100 MG TABLET (FP) PO SCH (22:13)
[2019-04-08] MEDS: MELATONIN 5 MG TABLETS PO PRN (22:14)
[2019-04-09] MEDS ORDERED: chlordiazePOXIDE HCL 10 MG CAPSULE PO PRN
[2019-04-09] MEDS: chlordiazePOXIDE HCL 10 MG CAPSULE PO SCH ×3 (06:56→21:14)
[2019-04-09] MEDS: PRENATAL VITAMINS W/ FOLIC ACID TABLET (FP) PO SCH (10:18)
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
[2019-04-09] MEDS: MELATONIN 5 MG TABLETS PO PRN (21:14)
[2019-04-09] MEDS: THIAMINE HCL 100 MG TABLET (FP) PO SCH (21:14)
[2019-04-10] MEDS ORDERED: chlordiazePOXIDE HCL 10 MG CAPSULE PO ONE (05:00)
[2019-04-10 06:22] VITALS: BP 104/67; PULSE 49; TEMP 96.6
--- NOTE | 2019-04-10 08:54 | DS ---
[facility] Detox Discharge Summary Admission Date: 04/06/19 Discharge Date: 04/10/19 - History Present History: Alcohol Dependence, Cannabis Dependence - Physical Exam Results Vital Signs: Vital Signs Temperature 96.6 F L 04/10/19 06:21 Pulse Rate 49 L 04/10/19 06:21 Respiratory Rate 18 04/10/19 06:21 Blood Pressure 104/67 04/10/19 06:21 O2 Sat by Pulse Oximetry (%) Pertinent Admission Physical Exam Findings: pt arrived in withdrawals Vital Signs Temperature 96.6 F L 04/10/19 06:21 Pulse Rate 49 L 04/10/19 06:21 Respiratory Rate 18 04/10/19 06:21 Blood Pressure 104/67 04/10/19 06:21 O2 Sat by Pulse Oximetry (%) Laboratory Tests 04/07/19 04/07/19 04/07/19 07:40 07:40 07:40 WBC 4.4 RBC 4.35 Hgb 14.0 Hct 41.4 MCV 95.3 MCH 32.2 MCHC 33.8 RDW 13.3 Plt Count 174 MPV 8.6 Sodium 140 Potassium 3.9 Chloride 107 Carbon Dioxide 31 Anion Gap 3 L BUN 13.5 Creatinine 1.1 Est GFR (CKD-EPI)AfAm 101.69 Est GFR (CKD-EPI)NonAf 87.74 Random Glucose 77 Calcium 8.4 L Total Bilirubin 0.5 AST 11 L ALT 15 Alkaline Phosphatase 51 Total Protein 6.4 Albumin 3.5 RPR Titer Reactive 1:2 H D T.pallidum Ab (MHA) Reactive HIV 1&2 Antibody Screen HIV P24 Antigen 04/07/19 07:40 WBC RBC Hgb Hct MCV MCH MCHC RDW Plt Count MPV Sodium Potassium Chloride Carbon Dioxide Anion Gap BUN Creatinine Est GFR (CKD-EPI)AfAm Est GFR (CKD-EPI)NonAf Random Glucose Calcium Total Bilirubin AST ALT Alkaline Phosphatase Total Protein Albumin RPR Titer T.pallidum Ab (MHA) HIV 1&2 Antibody Screen Negative HIV P24 Antigen Negative today pt is aaox3 ambulating no s/s withdrawals no acute distress - Treatment Hospital Course: Detox Protocol Followed, Detoxed Safely, Responded well, Discharged Condition Good, Rehab Referral Accepted Patient has Accepted a Rehab Referral to: pt referred to inpatient rehab - Medication Discharge Medications: Ambulatory Orders Fluoxetine HCl [Prozac -] 10 mg PO HS 12/13/18 Olanzapine [Zyprexa] 10 mg PO HS 12/13/18 - Diagnosis (1) Uncomplicated alcohol dependence Current Visit: Yes Status: Chronic (2) Nicotine dependence Current Visit: Yes Status: Chronic Qualifiers: Nicotine product type: cigarettes Substance use status: uncomplicated Qualified Code(s): F17.210 - Nicotine dependence, cigarettes, uncomplicated (3) Bipolar disorder Current Visit: Yes Status: Ruled-out (4) Cannabis dependence Current Visit: Yes Status: Chronic (5) Substance induced mood disorder Current Visit: No Status: Acute (6) Blindness of right eye Current Visit: No Status: Chronic (7) Schizoaffective disorder Current Visit: No Status: Chronic (8) Bipolar disorder Current Visit: No Status: Ruled-out - AMA Did Patient Leave Against Medical Advice: No
--- NOTE | 2019-04-10 09:28 | PN ---
[facility] Progress Note Note: patient refused to go to rehab for further level of care,awared that he need bicillin 2.4 million unit on monday04/15/19 and monday04/22/19 ,2 more injection for positive rpr 1:2 titre and mha reactive, he will go to his Medical provider [facility] at [address] [place] [address], for medication and injection,labs provided for the patient,also advise precaution for sexual relation, patient understood
[2019-04-10] MEDS: PRENATAL VITAMINS W/ FOLIC ACID TABLET (FP) PO SCH (11:15)
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
== END 2019-04-10 10:53 | disposition home or self-care (01) | DRG 775 ==
LOC: YASAS 12:03 → Y6N 15:01
PROVIDERS: ADMIT Allergy & Immunology; ATTEND Allergy & Immunology
PROC: HZ2ZZZZ Detoxification Services for Substance Abuse Treatment (ICD-10-PCS; principal; 2019-04-06)
DX: F10.230 Alcohol dependence with withdrawal, uncomplicated (principal); F12.20 Cannabis dependence, uncomplicated; F17.210 Nicotine dependence, cigarettes, uncomplicated; F19.24 Other psychoactive substance dependence with psychoactive substance-induced mood disorder; F25.9 Schizoaffective disorder, unspecified; H54.61 Unqualified visual loss, right eye, normal vision left eye; Z86.19 Personal history of other infectious and parasitic diseases
CPT/HCPCS: 36415; 80053; 85027; 86593; 86780; 87389

== ENCOUNTER 2019-04-23 19:18 | Inpatient (IN) | payer OTHER ==
[2019-04-23 21:23] VITALS: BMI 22.7
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
[2019-04-24] MEDS ORDERED: MAG HYDROX/AL HYDROX/SIMETH 30 ML UNIT-DOSE CUP PO PRN (00:59)
[2019-04-24] MEDS ORDERED: MAGNESIUM HYDROX 2400MG/30ML ORAL SUSPENSION 30 ML CUP PO PRN (00:59)
[2019-04-24] MEDS ORDERED: MENTHOL/PHENOL 1 EACH UD MM PRN (00:59)
[2019-04-24] MEDS ORDERED: LOPERAMIDE HCL 2 MG CAPSULE PO PRN (00:59)
[2019-04-24] MEDS ORDERED: MAGNESIUM CITRATE 300 ML BOTTLE PO PRN (00:59)
[2019-04-24] MEDS ORDERED: hydrOXYzine PAMOATE 25 MG CAPSULE (FP) PO PRN (00:59)
[2019-04-24] MEDS ORDERED: ACETAMINOPHEN 325 MG TABLET (FP) PO PRN (00:59)
[2019-04-24] MEDS ORDERED: NICOTINE POLACRILEX 2 MG GUM BUC PRN (00:59)
[2019-04-24] MEDS ORDERED: P-EPHED 60MG/TRIPROLIDI 2.5MG TABLET PO PRN (00:59)
[2019-04-24] MEDS ORDERED: guaiFENesin 200 MG/10 ML 10 ML UNIT-DOSE CUPS PO PRN (00:59)
[2019-04-24] MEDS ORDERED: IBUPROFEN 400 MG TABLET (FP) PO PRN (00:59)
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
[2019-04-24] MEDS ORDERED: PENICILLIN G BENZATHINE 2,400,000 UNIT/4 ML PFS IM ONE (10:00)
[2019-04-24 10:35] LABS: EPI CELLS 4.2 /HPF (0-5/HPF); HYALINE CASTS 38 /lpf (0-8); URINE APPEARANCE CLEAR; URINE BILIRUBIN NEGATIVE (NEGATIVE); URINE COLOR YELLOW; URINE GLUCOSE (UA) NEGATIVE (NEGATIVE); URINE KETONE TRACE (NEGATIVE); URINE LEUK ESTERASE TRACE (NEGATIVE); URINE NITRITE NEGATIVE (NEGATIVE); URINE PROTEIN NEGATIVE (NEGATIVE); URINE RBC 2 /hpf (0-4); URINE WBC 24 /hpf (0-5)
--- NOTE | 2019-04-24 10:36 | EKG ---
Test Reason : Blood Pressure : / mmHG Vent. Rate : 046 BPM Atrial Rate : 046 BPM P-R Int : 162 ms QRS Dur : 094 ms QT Int : 420 ms P-R-T Axes : 068 068 051 degrees QTc Int : 367 ms SINUS BRADYCARDIA EARLY REPOLARIZATION OTHERWISE NORMAL ECG WHEN COMPARED WITH ECG OF 31-OCT-2018 14:35, NO SIGNIFICANT CHANGE WAS FOUND Confirmed by CHARLA ACEVES, DANIEL ([id number]) on 04/24/2019 10:35:57 AM Referred By: Romi Sim Confirmed By:DANIEL DUNHAM MD
[2019-04-24] MEDS: PRENATAL VITAMINS W/ FOLIC ACID TABLET (FP) PO SCH (10:55)
[2019-04-24] MEDS: FLUoxetine HCL 10 MG CAPSULE (FP) PO SCH (14:53)
[2019-04-24] MEDS: MELATONIN 5 MG TABLETS PO PRN (21:15)
[2019-04-24] MEDS: THIAMINE HCL 100 MG TABLET (FP) PO SCH (21:15)
[2019-04-24] MEDS: OLANZapine 10 MG TABLET PO SCH (21:15)
[2019-04-25] MEDS: PRENATAL VITAMINS W/ FOLIC ACID TABLET (FP) PO SCH (10:50)
[2019-04-25] MEDS: FLUoxetine HCL 10 MG CAPSULE (FP) PO SCH (10:50)
--- NOTE | 2019-04-25 14:38 | PN ---
[facility] Progress Note Note: Pt noted to have ID 43 on 6am VS. Vital Signs - 24 hr 04/25/19 04/25/19 04/25/19 00:30 03:30 07:00 Temperature 97.2 F L Pulse Rate 43 L Respiratory 18 18 16 Rate Blood Pressure 119/62 Yesterday ID [id number] REpeat ID- Pt had EKG yesterday which showed sinus [place] and no changes compared to EKG 2018 awake and alert and out of bed without complaints, "you are asking me some weird questions" re h/o bradycardia and previous w/u
[2019-04-25] MEDS: THIAMINE HCL 100 MG TABLET (FP) PO SCH (21:23)
[2019-04-25] MEDS: MELATONIN 5 MG TABLETS PO PRN (21:23)
[2019-04-25] MEDS: OLANZapine 10 MG TABLET PO SCH (21:23)
[2019-04-26] MEDS: PRENATAL VITAMINS W/ FOLIC ACID TABLET (FP) PO SCH (10:01)
[2019-04-26] MEDS: FLUoxetine HCL 10 MG CAPSULE (FP) PO SCH (10:02)
[2019-04-26] MEDS: OLANZapine 10 MG TABLET PO SCH (21:13)
[2019-04-26] MEDS: THIAMINE HCL 100 MG TABLET (FP) PO SCH (21:13)
[2019-04-27] MEDS: PRENATAL VITAMINS W/ FOLIC ACID TABLET (FP) PO SCH (10:22)
[2019-04-27] MEDS: FLUoxetine HCL 10 MG CAPSULE (FP) PO SCH (10:22)
[2019-04-27] MEDS: OLANZapine 10 MG TABLET PO SCH (21:11)
[2019-04-27] MEDS: THIAMINE HCL 100 MG TABLET (FP) PO SCH (21:12)
[2019-04-28 06:49] VITALS: BP 112/69; PULSE 48; TEMP 97.5
[2019-04-28] MEDS: PRENATAL VITAMINS W/ FOLIC ACID TABLET (FP) PO SCH (09:27)
[2019-04-28] MEDS: FLUoxetine HCL 10 MG CAPSULE (FP) PO SCH (09:27)
--- NOTE | 2019-04-28 18:53 | PN ---
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
--- NOTE | 2019-04-28 19:07 | DS ---
[facility] Rehab Discharge Summary - [facility] Rehab Discharge Summary Admission Date: 04/24/19 Discharge Date: 04/28/19 - History Present History: Alcohol dependence, Cannabis dependence Additional Comments: patient left ama Pertinent Past History: nicotine dependence schizoaffective disorder bipolar disorder history of syphilis - Discharge Physical Exam Vital Signs: Vital Signs Temperature 97.5 F L 04/28/19 06:48 Pulse Rate 48 L 04/28/19 06:48 Respiratory Rate 16 04/28/19 06:48 Blood Pressure 112/69 04/28/19 06:48 O2 Sat by Pulse Oximetry (%) Pertinent Admission Physical Exam Findings: Vital Signs Temperature 97.5 F L 04/28/19 06:48 Pulse Rate 48 L 04/28/19 06:48 Respiratory Rate 16 04/28/19 06:48 Blood Pressure 112/69 04/28/19 06:48 O2 Sat by Pulse Oximetry (%) - Medication Discharge Medications: Ambulatory Orders Fluoxetine HCl [Prozac -] 10 mg PO HS 12/13/18 Olanzapine [Zyprexa] 10 mg PO HS 12/13/18 - Discharge Instructions Diet, activity, other medical instructions: Diet: Activity: Other medical instructions: - AMA Did Patient Leave Against Medical Advice: Yes Additional Comments: patient left the unit ama,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
== END 2019-04-28 18:35 | disposition left against medical advice (07) | DRG 770 ==
LOC: YASAS 19:18 → Y3W 04-24 01:36
PROVIDERS: ADMIT Neuromusculoskeletal Medicine & OMM; ATTEND Neuromusculoskeletal Medicine & OMM
PROC: HZ42ZZZ Group Counseling for Substance Abuse Treatment, Cognitive-Behavioral (ICD-10-PCS; principal; 2019-04-24)
DX: F10.20 Alcohol dependence, uncomplicated (principal); F12.20 Cannabis dependence, uncomplicated; F17.210 Nicotine dependence, cigarettes, uncomplicated; F19.282 Other psychoactive substance dependence with psychoactive substance-induced sleep disorder; F25.9 Schizoaffective disorder, unspecified; F19.24 Other psychoactive substance dependence with psychoactive substance-induced mood disorder; F31.9 Bipolar disorder, unspecified; A53.9 Syphilis, unspecified; H54.61 Unqualified visual loss, right eye, normal vision left eye; Z86.19 Personal history of other infectious and parasitic diseases
CPT/HCPCS: 81003; 93005; 93010

== ENCOUNTER 2022-04-07 15:26 | Inpatient (IN) | payer OTHER ==
[2022-04-07] MEDS ORDERED: NICOTINE 10 MG CARTRIDGE (INHALER) IH PRN (17:23)
[2022-04-07] MEDS ORDERED: DICYCLOMINE HCL 10 MG CAPSULE PO PRN (17:23)
[2022-04-07] MEDS ORDERED: chlordiazePOXIDE HCL 25 MG CAPSULE PO PRN (17:23)
[2022-04-07] MEDS ORDERED: BENZOCAINE/MENTHOL (CHLORASEPTIC ) LOZENGE MM PRN (17:23)
[2022-04-07] MEDS ORDERED: MAG HYDROX/AL HYDROX/SIMETH 30 ML UNIT-DOSE CUP PO PRN (17:23)
[2022-04-07] MEDS ORDERED: NICOTINE POLACRILEX 2 MG GUM BUC PRN (17:23)
[2022-04-07] MEDS ORDERED: LOPERAMIDE HCL 2 MG CAPSULE PO PRN (17:23)
[2022-04-07] MEDS ORDERED: MAGNESIUM HYDROX 2400MG/30ML ORAL SUSPENSION 30 ML CUP PO PRN (17:23)
[2022-04-07] MEDS ORDERED: chlordiazePOXIDE HCL 25 MG CAPSULE PO ONE (17:23)
[2022-04-07] MEDS ORDERED: IBUPROFEN 600 MG TABLET (FP) PO PRN (17:23)
[2022-04-07] MEDS ORDERED: NALOXONE HCL (KLOXXADO) 8 MG SPRAY NS PRN (17:23)
[2022-04-07] MEDS ORDERED: POLYETHYLENE GLYCOL (HEALTHYLAX) 3350 17 GM PACKET PO PRN (17:23)
[2022-04-07] MEDS ORDERED: METHOCARBAMOL 500 MG TABLET PO PRN (17:23)
[2022-04-07] MEDS ORDERED: ACETAMINOPHEN 325 MG TABLET (FP) PO PRN ×2 (17:23)
[2022-04-07] MEDS ORDERED: IBUPROFEN 400 MG TABLET (FP) PO PRN (17:23)
[2022-04-07] MEDS ORDERED: BISMUTH SUBSALICYLATE 524 MG/30 ML PO PRN (17:23)
[2022-04-07] MEDS ORDERED: ONDANSETRON *ODT* 4 MG TABLET SL PRN (17:23)
[2022-04-07 17:42] VITALS: BMI 23.1
[2022-04-07] MEDS: PRENATAL VITAMINS W/ FOLIC ACID TABLET (FP) PO SCH (18:36)
[2022-04-07] MEDS: chlordiazePOXIDE HCL 25 MG CAPSULE PO SCH (22:09)
[2022-04-07] MEDS: THIAMINE HCL 100 MG TABLET (FP) PO SCH (22:09)
[2022-04-07] MEDS: MELATONIN 5 MG TABLETS PO SCH (22:09)
[2022-04-08] MEDS: chlordiazePOXIDE HCL 25 MG CAPSULE PO SCH ×4 (06:10→22:24)
[2022-04-08 10:08] LABS: HEMOGLOBIN 14.5 GM/dL (11.7-16.9); MCHC 33.7 g/dl (32.0-35.9); MEAN CELL VOLUME 94.9 fl (80-96); MEAN PLT VOLUME 7.6 fl (7.5-11.1); PLATELET COUNT 204 10^3/uL (134-434); RBC 4.53 M/mm3 (4.00-5.60); RDW 13.2 % (11.9-15.9); WHITE BLOOD COUNT 4.9 K/mm3 (4.0-10.0)
[2022-04-08] MEDS: PRENATAL VITAMINS W/ FOLIC ACID TABLET (FP) PO SCH (10:37)
[2022-04-08 11:09] LABS: ALBUMIN 3.6 g/dl (3.4-5.0); BLOOD UREA NITROGEN 13.6 mg/dL (7-18); CALCIUM 8.7 mg/dL (8.5-10.1)
[2022-04-08 11:14] LABS: BILIRUBIN,TOTAL 0.6 mg/dL (0.2-1)
[2022-04-08] MEDS ORDERED: PENICILLIN G BENZATHINE 2,400,000 UNIT/4 ML PFS IM ONE (15:06)
[2022-04-08] MEDS: THIAMINE HCL 100 MG TABLET (FP) PO SCH (22:24)
[2022-04-08] MEDS: MELATONIN 5 MG TABLETS PO SCH (22:26)
[2022-04-09 06:01] VITALS: BP 103/65; PULSE 60; RESP 16; TEMP 97.7
[2022-04-09] MEDS: chlordiazePOXIDE HCL 25 MG CAPSULE PO SCH ×3 (06:16→11:04)
[2022-04-09] MEDS: PRENATAL VITAMINS W/ FOLIC ACID TABLET (FP) PO SCH (11:04)
[2022-04-10] MEDS ORDERED: chlordiazePOXIDE HCL 10 MG CAPSULE PO PRN
[2022-04-10] MEDS ORDERED: chlordiazePOXIDE HCL 10 MG CAPSULE PO SCH (05:00)
[2022-04-11] MEDS ORDERED: chlordiazePOXIDE HCL 10 MG CAPSULE PO SCH (05:00)
[2022-04-12] MEDS ORDERED: chlordiazePOXIDE HCL 10 MG CAPSULE PO ONE (05:00)
== END 2022-04-09 10:26 | disposition left against medical advice (07) | DRG 770 ==
LOC: YASAS 15:26 → Y3N 17:33
PROVIDERS: ADMIT Allergy & Immunology; ATTEND Surgery
PROC: HZ2ZZZZ Detoxification Services for Substance Abuse Treatment (ICD-10-PCS; principal; 2022-04-07)
DX: F10.230 Alcohol dependence with withdrawal, uncomplicated (principal); F12.20 Cannabis dependence, uncomplicated; F17.210 Nicotine dependence, cigarettes, uncomplicated; F25.9 Schizoaffective disorder, unspecified; F19.24 Other psychoactive substance dependence with psychoactive substance-induced mood disorder; A53.9 Syphilis, unspecified; H54.61 Unqualified visual loss, right eye, normal vision left eye
CPT/HCPCS: 36415; 80053; 85027; 86593; 86780; C9803-CS; U0003; U0005

== ENCOUNTER 2022-05-05 19:35 | Inpatient (IN) | payer OTHER ==
[2022-05-05 19:58] VITALS: BMI 22.4
[2022-05-05] MEDS ORDERED: MAGNESIUM HYDROX 2400MG/30ML ORAL SUSPENSION 30 ML CUP PO PRN (20:14)
[2022-05-05] MEDS ORDERED: ACETAMINOPHEN 325 MG TABLET (FP) PO PRN ×2 (20:14)
[2022-05-05] MEDS ORDERED: MAG HYDROX/AL HYDROX/SIMETH 30 ML UNIT-DOSE CUP PO PRN (20:14)
[2022-05-05] MEDS ORDERED: BENZOCAINE/MENTHOL (CHLORASEPTIC ) LOZENGE MM PRN (20:14)
[2022-05-05] MEDS ORDERED: LOPERAMIDE HCL 2 MG CAPSULE PO PRN (20:14)
[2022-05-05] MEDS ORDERED: METHOCARBAMOL 500 MG TABLET PO PRN (20:14)
[2022-05-05] MEDS ORDERED: POLYETHYLENE GLYCOL (HEALTHYLAX) 3350 17 GM PACKET PO PRN (20:14)
[2022-05-05] MEDS ORDERED: hydrOXYzine PAMOATE 25 MG CAPSULE (FP) PO PRN (20:14)
[2022-05-05] MEDS ORDERED: NICOTINE POLACRILEX 2 MG GUM BUC PRN (20:14)
[2022-05-05] MEDS ORDERED: IBUPROFEN 400 MG TABLET (FP) PO PRN (20:14)
[2022-05-05] MEDS ORDERED: DICYCLOMINE HCL 10 MG CAPSULE PO PRN (20:14)
[2022-05-05] MEDS ORDERED: NALOXONE HCL (KLOXXADO) 8 MG SPRAY NS PRN (20:14)
[2022-05-05] MEDS ORDERED: BISMUTH SUBSALICYLATE 524 MG/30 ML PO PRN (20:14)
[2022-05-05] MEDS ORDERED: ONDANSETRON *ODT* 4 MG TABLET SL PRN (20:14)
[2022-05-05] MEDS ORDERED: IBUPROFEN 600 MG TABLET (FP) PO PRN (20:14)
[2022-05-05] MEDS ORDERED: THIAMINE HCL 100 MG TABLET (FP) PO SCH (22:00)
[2022-05-05] MEDS ORDERED: MELATONIN 5 MG TABLETS PO SCH (22:00)
[2022-05-06] MEDS ORDERED: PRENATAL VITAMINS W/ FOLIC ACID TABLET (FP) PO SCH (10:00)
[2022-05-06] MEDS ORDERED: NICOTINE 14 MG/24 HOURS TOPICAL PATCH TD SCH (10:00)
[2022-05-06 12:35] LABS: ALBUMIN 3.5 g/dl (3.4-5.0); BLOOD UREA NITROGEN 15.5 mg/dL (7-18)
[2022-05-06 12:39] LABS: BILIRUBIN,TOTAL 1.1 mg/dL (0.2-1); TOT PROT 7.1 g/dl (6.4-8.2)
[2022-05-06 12:40] VITALS: BP 123/72; PULSE 51; RESP 17; TEMP 97.3
[2022-05-06 13:04] LABS: HEMOGLOBIN 13.8 GM/dL (11.7-16.9)
[2022-05-06 13:27] LABS: HEMATOCRIT 42.6 % (35.4-49); MCH 30.8 pg (25.7-33.7); MCHC 32.4 g/dl (32.0-35.9); MEAN CELL VOLUME 95.2 fl (80-96); PLATELET COUNT 219 10^3/uL (134-434); RBC 4.48 M/mm3 (4.00-5.60); RDW 14.1 % (11.9-15.9); WHITE BLOOD COUNT 5.3 K/mm3 (4.0-10.0)
== END 2022-05-06 13:18 | disposition home or self-care (01) | DRG 775 ==
LOC: YASAS 19:35 → Y3N 20:20
PROVIDERS: ADMIT Allergy & Immunology; ATTEND Surgery
PROC: HZ2ZZZZ Detoxification Services for Substance Abuse Treatment (ICD-10-PCS; principal; 2022-05-05)
DX: F10.20 Alcohol dependence, uncomplicated (principal); F12.20 Cannabis dependence, uncomplicated; F17.210 Nicotine dependence, cigarettes, uncomplicated; F19.24 Other psychoactive substance dependence with psychoactive substance-induced mood disorder; H54.40 Blindness, one eye, unspecified eye; Z86.19 Personal history of other infectious and parasitic diseases; Z86.59 Personal history of other mental and behavioral disorders; Z91.14 Patient's other noncompliance with medication regimen; Z56.0 Unemployment, unspecified; Z59.00 Homelessness unspecified
CPT/HCPCS: 36415; 80053; 85027; 86593; 86780; C9803-CS; U0003; U0005

== ENCOUNTER 2023-02-17 20:17 | Inpatient (IN) | payer OTHER ==
[2023-02-17 21:21] VITALS: BMI 20.7
[2023-02-17] MEDS ORDERED: NALOXONE HCL 0.4 MG/ML VIAL IM PRN (23:28)
[2023-02-17] MEDS ORDERED: COLLOIDAL OATMEAL 1 BAR EACH TP PRN (23:28)
[2023-02-17] MEDS ORDERED: BENZONATATE 200 MG CAPSULE PO PRN (23:28)
[2023-02-17] MEDS ORDERED: MAGNESIUM HYDROX 2400MG/30ML ORAL SUSPENSION 30 ML CUP PO PRN (23:28)
[2023-02-17] MEDS ORDERED: IBUPROFEN 400 MG TABLET (FP) PO PRN (23:28)
[2023-02-17] MEDS ORDERED: ACETAMINOPHEN 325 MG TABLET (FP) PO PRN (23:28)
[2023-02-17] MEDS ORDERED: MAG HYDROX/AL HYDROX/SIMETH 30 ML UNIT-DOSE CUP PO PRN (23:28)
[2023-02-17] MEDS ORDERED: BENZOCAINE/MENTHOL (CHLORASEPTIC ) LOZENGE MM PRN (23:28)
[2023-02-17] MEDS ORDERED: guaiFENesin 600 MG TABLET.ER (FP) PO PRN (23:28)
[2023-02-17] MEDS ORDERED: NALOXONE HCL (KLOXXADO) 8 MG SPRAY NS PRN (23:28)
[2023-02-17] MEDS ORDERED: POLYETHYLENE GLYCOL (HEALTHYLAX) 3350 17 GM PACKET PO PRN (23:28)
[2023-02-17] MEDS ORDERED: hydrOXYzine PAMOATE 25 MG CAPSULE (FP) PO PRN (23:28)
[2023-02-17] MEDS ORDERED: LOPERAMIDE HCL 2 MG CAPSULE PO PRN (23:28)
[2023-02-17] MEDS ORDERED: NICOTINE POLACRILEX 2 MG GUM BUC PRN (23:28)
[2023-02-18] MEDS: MELATONIN 5 MG TABLETS PO SCH ×2 (06:52→21:29)
[2023-02-18 07:54] VITALS: RESP 18
[2023-02-18 10:54] LABS: POTASSIUM 4.4 mmol/L (3.5-5.1)
[2023-02-18 10:55] LABS: HEMATOCRIT 40.7 % (35.4-49); HEMOGLOBIN 13.3 GM/dL (11.7-16.9); MCHC 32.6 g/dl (32.0-35.9); MEAN CELL VOLUME 95.2 fl (80-96); MEAN PLT VOLUME 7.7 fl (7.5-11.1); PLATELET COUNT 205 10^3/uL (134-434); RBC 4.28 M/mm3 (4.00-5.60); RDW 13.5 % (11.9-15.9); WHITE BLOOD COUNT 5.1 K/mm3 (4.0-10.0)
[2023-02-18 10:56] LABS: ALBUMIN 3.3 g/dl (3.4-5.0); CALCIUM 8.6 mg/dL (8.5-10.1)
[2023-02-18] MEDS: NICOTINE 14 MG/24 HOURS TOPICAL PATCH TD SCH (10:56)
[2023-02-18] MEDS: PRENATAL VITAMINS W/ FOLIC ACID TABLET (FP) PO SCH ×2 (10:56→11:14)
[2023-02-18 11:01] LABS: BILIRUBIN,TOTAL 0.2 mg/dL (0.2-1); TOT PROT 6.9 g/dl (6.4-8.2)
[2023-02-18 11:30] LABS: SYPHILIS W/ RPR CONF REACTIVE (NONREACTIVE)
[2023-02-18] MEDS ORDERED: TUBERCULIN PPD 5 TU/0.1ML SYRINGE (IN PATIENT USE ONLY) ID ONE (12:00)
[2023-02-18 13:27] LABS: PH,URINE 5.5 (5.0-8.0); URINE APPEARANCE CLEAR; URINE BILIRUBIN NEGATIVE (NEGATIVE); URINE COLOR YELLOW; URINE GLUCOSE (UA) NEGATIVE (NEGATIVE); URINE KETONE TRACE (NEGATIVE); URINE LEUK ESTERASE NEGATIVE (NEGATIVE); URINE NITRITE NEGATIVE (NEGATIVE); URINE PROTEIN NEGATIVE (NEGATIVE); URINE UROBILINOGEN 0.2 mg/dL (0.2-1.0)
[2023-02-18] MEDS: OLANZapine 5 MG TABLET PO SCH (21:29)
[2023-02-18] MEDS: THIAMINE HCL 100 MG TABLET (FP) PO SCH (21:29)
[2023-02-19] MEDS: PRENATAL VITAMINS W/ FOLIC ACID TABLET (FP) PO SCH (10:13)
[2023-02-19] MEDS: NICOTINE 14 MG/24 HOURS TOPICAL PATCH TD SCH (10:13)
[2023-02-19] MEDS: MELATONIN 5 MG TABLETS PO SCH (21:46)
[2023-02-19] MEDS: OLANZapine 5 MG TABLET PO SCH (21:46)
[2023-02-19] MEDS: THIAMINE HCL 100 MG TABLET (FP) PO SCH (21:46)
[2023-02-20] MEDS: NICOTINE 14 MG/24 HOURS TOPICAL PATCH TD SCH (10:38)
[2023-02-20] MEDS: PRENATAL VITAMINS W/ FOLIC ACID TABLET (FP) PO SCH (10:38)
[2023-02-20] MEDS: MELATONIN 5 MG TABLETS PO SCH (21:44)
[2023-02-20] MEDS: OLANZapine 5 MG TABLET PO SCH (21:45)
[2023-02-20] MEDS: THIAMINE HCL 100 MG TABLET (FP) PO SCH (21:45)
[2023-02-21] MEDS: PRENATAL VITAMINS W/ FOLIC ACID TABLET (FP) PO SCH (09:34)
[2023-02-21] MEDS: IBUPROFEN 600 MG TABLET (FP) PO PRN (09:34)
[2023-02-21] MEDS: NICOTINE 14 MG/24 HOURS TOPICAL PATCH TD SCH (09:34)
[2023-02-21] MEDS: OLANZapine 5 MG TABLET PO SCH (21:49)
[2023-02-21] MEDS: MELATONIN 5 MG TABLETS PO SCH (21:49)
[2023-02-21] MEDS: THIAMINE HCL 100 MG TABLET (FP) PO SCH (21:49)
[2023-02-22] MEDS: IBUPROFEN 600 MG TABLET (FP) PO PRN (03:15)
[2023-02-22 07:05] VITALS: BP 99/62; PULSE 60; TEMP 97.7
[2023-02-22] MEDS: NICOTINE 14 MG/24 HOURS TOPICAL PATCH TD SCH (10:32)
[2023-02-22] MEDS: PRENATAL VITAMINS W/ FOLIC ACID TABLET (FP) PO SCH (10:32)
== END 2023-02-22 16:00 | disposition left against medical advice (07) | DRG 770 ==
LOC: YASAS 20:17 → Y5N 02-18 02:15
PROVIDERS: ADMIT Allergy & Immunology; ATTEND Psychiatry & Neurology Pain Medicine
PROC: HZ42ZZZ Group Counseling for Substance Abuse Treatment, Cognitive-Behavioral (ICD-10-PCS; principal; 2023-02-18)
DX: F10.20 Alcohol dependence, uncomplicated (principal); F12.20 Cannabis dependence, uncomplicated; F17.210 Nicotine dependence, cigarettes, uncomplicated; F25.9 Schizoaffective disorder, unspecified; F19.24 Other psychoactive substance dependence with psychoactive substance-induced mood disorder; H54.61 Unqualified visual loss, right eye, normal vision left eye; Z86.59 Personal history of other mental and behavioral disorders; Z86.19 Personal history of other infectious and parasitic diseases; Z91.148 Patient's other noncompliance with medication regimen for other reason
CPT/HCPCS: 36415; 80053; 81003; 85027; 86593; 86780; 86803; 87635; 93005; 93010